=== PATIENT | male | born 1960 | race Caucasian/White ===

== ENCOUNTER 2016-11-14 19:17 | Emergency (ER) | payer BC, OTHER ==
--- NOTE | 2016-11-14 19:46 | UC ---
Dizzy HPI - History Of Current Complaint Chief Complaint: UCDizziness Stated Complaint: DIZZY,LIGHTHEADED 1 WEEK Time Seen by Provider: 11/14/16 19:40 Onset/Duration: Sudden Onset - last weekend went away 2 days later., Worse Since - night into today. Severity Initially: Mild Severity Currently: Moderate Character: Lightheaded Aggravating Factor(s): Exertion, Supine To Erect Alleviating Factor(s): Lying Down Associated Signs And Symptoms: Positive: Diaphoresis. Negative: Chest Pain, SOB - Risk Factors Cardiac Risk Factors: Diabetes, Family History CVA Risk Factor: Diabetes - Allergies/Home Medications Allergies/Adverse Reactions: Allergies Allergy/AdvReac Type Severity Reaction Status Date / Time No Known Allergies Allergy Verified 11/14/16 19:38 Home Medications: Home Medications Ibuprofen [Advil] 2 tab PO Q6HR PRN 11/14/16 [History Confirmed 11/14/16] PMH/Surg Hx/FS Hx/Imm Hx Endocrine History Of: Reports: Diabetes - Surgical History Surgical History: None Surgery Procedure, Year, and Place: Bilateral Cataract surgery - Family History Known Family History: Positive: Cardiac Disease, Diabetes Negative: Hypertension - Social History Occupation: Employed Full-time Lives: Alone Alcohol Use: Occasionally Substance Use Type: None Smoking Status (MU): Never Smoked Tobacco Have You Smoked in the Last Year: No Review of Systems Neurological: Headache - frontal All Other Systems Reviewed And Are Negative: Yes Physical Exam Triage Information Reviewed: Yes Appearance: Well-Appearing, No Pain Distress, Well-Nourished Vital Signs: Initial Vital Signs Temp 97.4 F 11/14/16 19:24 Pulse 90 11/14/16 19:24 Resp 16 11/14/16 19:24 BP 119/72 11/14/16 19:24 Pulse Ox 100 11/14/16 19:24 Vital Signs Reviewed: Yes Eyes: Positive: Conjunctiva Clear Neck exam: Normal Respiratory Exam: Normal Cardiovascular: Positive: RRR - frequent skipped beats. Abdominal Exam: Normal Musculoskeletal Exam: Normal Neurological Exam: Normal Psychological Exam: Normal Skin Exam: Normal Dizzy Course/Dx - Differential Dx/Diagnosis Differential Diagnosis/HQI/PQRI: Coronary Artery Disease, Dysrhythmia, Myocardial Infarction Provider Diagnoses: Dizziness. Abnormal EKG. C/O ACS - Physician Notifications Discussed Patient Care With: Joe Time Discussed With Above Provider: 20:06 Discharge - Discharge Plan Condition: Guarded Disposition: TRANS HIGHER LVL OF CARE FAC
[2016-11-14] MEDS ORDERED: Aspirin Low Dose CHEW TAB* 81 MG PO ONE (19:57)
[2016-11-14 20:13] VITALS: BP 125/78
== END 2016-11-14 20:22 | disposition short-term general hospital (02) ==
LOC: UCCORT 19:17
DX: R42 Dizziness and giddiness (principal); R94.31 Abnormal electrocardiogram [ECG] [EKG]; E11.9 Type 2 diabetes mellitus without complications; Z98.42 Cataract extraction status, left eye; Z98.41 Cataract extraction status, right eye
CPT/HCPCS: 93005; 99203; A9270-GY; G0463

== ENCOUNTER 2016-11-14 21:04 | Emergency (ER) | payer BC ==
[2016-11-14] MEDS ORDERED: Meclizine TAB* 12.5 MG PO ONE (21:20)
[2016-11-14 21:24] LABS: Hematocrit 38 % (42-52); Mean Corpuscular HGB Conc 35 g/dl (31-36); Mean Corpuscular Hemoglobin 29 pg (27-31); Mean Corpuscular Volume 84 fL (80-94); Mean Platelet Volume 7 um3 (7.4-10.4); Red Blood Count 4.48 10^6/ul (4.0-5.4); Red Cell Distribution Width 14 % (10.5-15); White Blood Count 5.1 10^3/ul (3.5-10.8)
[2016-11-14 21:38] LABS: Albumin 3.8 g/dL (3.2-5.2); BUN/Creatinine Ratio 23.3 (8-20); Calcium 9.3 mg/dL (8.6-10.3); EGFR Non-African American 48.2 (>60); Globulin 3.2 g/dL (2-4); Magnesium 2.3 mg/dL (1.9-2.7); Potassium 4.3 mmol/L (3.5-5.0); Total Bilirubin 0.5 mg/dL (0.2-1.0)
--- NOTE | 2016-11-14 21:56 | RAD ---
HISTORY: Vertigo COMPARISONS: None TECHNIQUE: Multiple contiguous axial CT scans were obtained of the head without intravenous contrast. FINDINGS: HEMORRHAGE/INFARCT: There is no hemorrhage or acute infarct. MASSES/SHIFT: There is no mass or shift. EXTRA-AXIAL SPACES: There are no extra-axial fluid collections. SULCI AND VENTRICLES: The sulci and ventricles are normal in size and position for the patient's stated age. CEREBRUM: There are no focal parenchymal abnormalities. BRAINSTEM: There are no focal parenchymal abnormalities. CEREBELLUM: There are no focal parenchymal abnormalities. VESSELS: The vessels are grossly normal. PARANASAL SINUSES: The paranasal sinuses are clear. ORBITS: The orbits are unremarkable. BONES AND SOFT TISSUE: No bone or soft tissue abnormalities are noted. OTHER: None IMPRESSION: NO ACUTE INTRACRANIAL PATHOLOGY.
[2016-11-14 22:05] LABS: TSH (Thyroid Stimulating Horm) 6.1 mcIU/mL (0.34-5.60)
[2016-11-14] MEDS ORDERED: NS 0.9% 1000 ML* 2,000 ML IV ONE (22:23)
[2016-11-14] MEDS ORDERED: NS 0.9% 1000 ML* 1,000 ML IV ONE (22:46)
--- NOTE | 2016-11-14 22:46 | ED ---
Leonie Pina Erika, scribed for Festus Cm MD on 11/14/16 at 2144 . Dizziness - HPI Summary HPI Summary: Patient is a 56-year-old male presenting to the ED with a CC of dizziness. Patient reports that he woke up with the dizziness on 11/07/2016, and it lasted 2 days. On 11/12, patient developed the dizziness again. Now, dizziness is still present, but is somewhat improved. Pt describes the dizziness as a spinning sensation that is alleviated by lying down and aggravated by movement. He states decreased balance, but reports he is able to walk. Associated symptoms include nausea. He denies visual changes and tinnitus. Pt reports similar dizziness years ago, but that episode was alleviated by sleep. Hx DM. - History Of Current Complaint Chief Complaint: EDDizziness Stated Complaint: XFER FROM [facility] Time Seen by Provider: 11/14/16 21:09 Hx Obtained From: Patient Onset/Duration: Still Present Timing: Intermittent Episode Lasting - minutes/hours Severity Initially: Moderate Severity Currently: Mild Character: Room Spinning, Dizzy Aggravating Factor(s): Position Change, Supine To Erect, Change In Head Position Alleviating Factor(s): Lying Down Associated Signs And Symptoms: Positive: Nausea, Unsteady Gait. Negative: Tinnitus, Visual Changes - Allergies/Home Medications Allergies/Adverse Reactions: Allergies Allergy/AdvReac Type Severity Reaction Status Date / Time No Known Allergies Allergy Verified 11/14/16 19:38 PMH/Surg Hx/FS Hx/Imm Hx Endocrine/Hematology History: Reports: Hx Diabetes - Surgical History Surgery Procedure, Year, and Place: Bilateral Cataract surgery Infectious Disease History: No Infectious Disease History: Denies: Traveled Outside the [place] in Last 30 Days - Family History Known Family History: Positive: Cardiac Disease, Diabetes Negative: Hypertension - Social History Alcohol Use: Occasionally Hx Substance Use: No Substance Use Type: Reports: None Hx Tobacco Use: No Smoking Status (MU): Never Smoked Tobacco Have You Smoked in the Last Year: No Review of Systems Negative: Blurred Vision Positive: Nausea Neurological: Other - dizziness, unsteady gait All Other Systems Reviewed And Are Negative: Yes Physical Exam Triage Information Reviewed: Yes Vital Signs On Initial Exam: Initial Vitals Temp Pulse Resp BP Pulse Ox 97.7 F 86 18 164/99 100 11/14/16 21:07 11/14/16 21:07 11/14/16 21:07 11/14/16 21:07 11/14/16 21:07 Vital Signs Reviewed: Yes Appearance: Positive: Well-Appearing, No Pain Distress Skin: Positive: Warm, Skin Color Reflects Adequate Perfusion, Dry Head/Face: Positive: Normal Head/Face Inspection Eyes: Positive: Other: - Slight nystagmus to the right that fatigued ENT: Positive: Normal ENT inspection Neck: Positive: Supple, Nontender Respiratory/Lung Sounds: Positive: Clear to Auscultation, Breath Sounds Present Cardiovascular: Positive: RRR Abdomen Description: Positive: Nontender, Soft Bowel Sounds: Positive: Present Musculoskeletal: Positive: Normal Neurological: Positive: Other - Slight nystagmus to the right that fatigued Psychiatric: Positive: Affect/Mood Appropriate Diagnostics - Vital Signs Vital Signs Temp Pulse Resp BP Pulse Ox 11/14/16 21:07 97.7 F 86 18 164/99 100 - Laboratory Lab Results: Lab Results 11/14/16 11/14/16 11/14/16 Range/Units 21:15 21:15 21:15 WBC 5.1 (3.5-10.8) 10^3/ul RBC 4.48 (4.0-5.4) 10^6/ul Hgb 13.0 L (14.0-18.0) g/dl Hct 38 L (42-52) % MCV 84 (80-94) fL MCH 29 (27-31) pg MCHC 35 (31-36) g/dl RDW 14 (10.5-15) % Plt Count 143 L (150-450) 10^3/ul MPV 7 L (7.4-10.4) um3 Neut % (Auto) 58.1 (38-83) % Lymph % (Auto) 30.8 (25-47) % [place] % (Auto) 9.0 (1-9) % Eos % (Auto) 1.6 (0-6) % Baso % (Auto) 0.5 (0-2) % Absolute Neuts (auto) 3.0 (1.5-7.7) 10^3/ul Absolute Lymphs (auto) 1.6 (1.0-4.8) 10^3/ul Absolute Monos (auto) 0.5 (0-0.8) 10^3/ul Absolute Eos (auto) 0.1 (0-0.6) 10^3/ul Absolute Basos (auto) 0 (0-0.2) 10^3/ul Absolute Nucleated RBC 0 10^3/ul Nucleated RBC % 0.1 INR (Anticoag Therapy) 0.87 L (0.89-1.11) Sodium 135 (133-145) mmol/L Potassium 4.3 (3.5-5.0) mmol/L Chloride 97 L (101-111) mmol/L Carbon Dioxide 30 (22-32) mmol/L Anion Gap 8 (2-11) mmol/L BUN 35 H (6-24) mg/dL Creatinine 1.50 H (0.67-1.17) mg/dL Est GFR ( Amer) 62.0 (>60) Est GFR (Non-Af Amer) 48.2 (>60) BUN/Creatinine Ratio 23.3 H (8-20) Glucose 345 H (70-100) mg/dL Lactic Acid (0.5-2.0) mmol/L Calcium 9.3 (8.6-10.3) mg/dL Magnesium 2.3 (1.9-2.7) mg/dL Total Bilirubin 0.50 (0.2-1.0) mg/dL AST 17 (13-39) U/L ALT 17 (7-52) U/L Alkaline Phosphatase 63 (34-104) U/L Troponin I 0.00 (<0.04) ng/mL Total Protein 7.0 (6.4-8.9) g/dL Albumin 3.8 (3.2-5.2) g/dL Globulin 3.2 (2-4) g/dL Albumin/Globulin Ratio 1.2 (1-3) TSH 6.10 H (0.34-5.60) mcIU/mL 11/14/16 Range/Units 21:15 WBC (3.5-10.8) 10^3/ul RBC (4.0-5.4) 10^6/ul Hgb (14.0-18.0) g/dl Hct (42-52) % MCV (80-94) fL MCH (27-31) pg MCHC (31-36) g/dl RDW (10.5-15) % Plt Count (150-450) 10^3/ul MPV (7.4-10.4) um3 Neut % (Auto) (38-83) % Lymph % (Auto) (25-47) % [place] % (Auto) (1-9) % Eos % (Auto) (0-6) % Baso % (Auto) (0-2) % Absolute Neuts (auto) (1.5-7.7) 10^3/ul Absolute Lymphs (auto) (1.0-4.8) 10^3/ul Absolute Monos (auto) (0-0.8) 10^3/ul Absolute Eos (auto) (0-0.6) 10^3/ul Absolute Basos (auto) (0-0.2) 10^3/ul Absolute Nucleated RBC 10^3/ul Nucleated RBC % INR (Anticoag Therapy) (0.89-1.11) Sodium (133-145) mmol/L Potassium (3.5-5.0) mmol/L Chloride (101-111) mmol/L Carbon Dioxide (22-32) mmol/L Anion Gap (2-11) mmol/L BUN (6-24) mg/dL Creatinine (0.67-1.17) mg/dL Est GFR ( Amer) (>60) Est GFR (Non-Af Amer) (>60) BUN/Creatinine Ratio (8-20) Glucose (70-100) mg/dL Lactic Acid 1.2 (0.5-2.0) mmol/L Calcium (8.6-10.3) mg/dL Magnesium (1.9-2.7) mg/dL Total Bilirubin (0.2-1.0) mg/dL AST (13-39) U/L ALT (7-52) U/L Alkaline Phosphatase (34-104) U/L Troponin I (<0.04) ng/mL Total Protein (6.4-8.9) g/dL Albumin (3.2-5.2) g/dL Globulin (2-4) g/dL Albumin/Globulin Ratio (1-3) TSH (0.34-5.60) mcIU/mL Result Diagrams: 11/14/16 21:15 11/14/16 21:15 Lab Statement: Any lab studies that have been ordered have been reviewed, and results considered in the medical decision making process. - CT CT Brain CT Interpretation Completed By: Radiologist - IMPRESSION: NO ACUTE INTRACRANIAL PATHOLOGY. - EKG 21:04 Cardiac Rate: NL - at 88 bpm EKG Rhythm: Sinus Rhythm Ectopy: PVCs EKG Interpretation: LBBB Re-Evaluation - Re-Evaluation First Eval Re-Evaluation Time: 22:24 Comment: Discussed results with patient Dizzy Course/Dx - Course Course Of Treatment: Mr. Feldman presented with about a week of intermittent vertiginous symptoms accompanied by nausea and NO visual changes or other cranial nerve involvement. It is worse if he moves his head. He is able to walk but feels unsteady. His W/U here was negative except for dehydratin and he allows that he has not been eating or drinking because of the nausea. He improved a lot with meclizine and I think that this is a peripheral vertigo. I will treat him symptomatically and he is being hydrated now. - Diagnoses Provider Diagnoses: Peripheral vertigo Discharge - Discharge Plan Condition: Stable Disposition: HOME The documentation as recorded by the Leonie araya Erika accurately reflects the service I personally performed and the decisions made by me, Festus Cm MD.
[2016-11-15 01:52] LABS: Urine Bacteria Absent (Absent); Urine Bilirubin Negative (Negative); Urine Glucose 3+(>=500 mg/dL) (Negative); Urine Nitrite Negative (Negative)
[2016-11-15 04:09] VITALS: BP 152/84
== END 2016-11-15 03:25 | disposition home or self-care (01) ==
LOC: ED 21:04
DX: H81.399 Other peripheral vertigo, unspecified ear (principal); E11.9 Type 2 diabetes mellitus without complications
CPT/HCPCS: 36415; 70450; 80053; 81003; 81015; 83605; 83735; 84443; 84484; 85025; 85610; 93005; 96360; 99283; A9270-GY